=== PATIENT | female | born 1985 | race Caucasian/White ===

== ENCOUNTER 2017-07-10 11:12 | Emergency (ER) | payer OTHER ==
[~2017-07-10] VITALS: Ht 165.1 cm; Wt 81.7 kg
[~2017-07-10 11:12] MED LIST: FLEXERIL PO; HYDROCODONE-APA1 TA1 PO; NORFLEX100 MG PO; PREDNISONE 10 M10 MG PO
[2017-07-10] MEDS ORDERED: BACLOFEN20 MG PO (11:35)
[2017-07-10 11:46] LABS: URINE BILIRUBIN NEGATIVE (Negative); URINE BLOOD NEGATIVE (Negative); URINE CLARITY CLEAR; URINE COLOR YELLOW; URINE GLUCOSE-RANDOM* NEGATIVE (Negative); URINE KETONES NEGATIVE (Negative); URINE LEUKOCYTES-REFLEX NEGATIVE (Negative); URINE NITRITE-REFLEX NEGATIVE (Negative); URINE PROTEIN (DIPSTICK) NEGATIVE (Negative); URINE SPECIFIC GRAVITY 1.025 (1.005-1.035); URINE UROBILINOGEN 0.2 E.U./dl (0.2-1.0)
[2017-07-10] MEDS ORDERED: ULTRAM 50MG TAB50 MG PO (11:54)
[2017-07-10] MEDS ORDERED: NAPROSYN500 MG PO (11:54)
== END 2017-07-10 12:32 | disposition home or self-care (01) ==
LOC: ER 11:12
PROVIDERS: Emergency Medicine
DX: S29.011A Strain of muscle and tendon of front wall of thorax, initial encounter (principal); Z90.49 Acquired absence of other specified parts of digestive tract; Z88.5 Allergy status to narcotic agent; X58.XXXA Exposure to other specified factors, initial encounter; Y93.89 Activity, other specified; Y92.89 Other specified places as the place of occurrence of the external cause; Y99.8 Other external cause status